=== PATIENT | male | born 1995 | race American Indian/Alaskan Native ===

== ENCOUNTER 2020-11-12 15:58 | Emergency (ER) | payer SELFPAY ==
[2020-11-12 16:12] VITALS: BP 116/61
--- NOTE | 2020-11-12 16:41 | Emergency Department Report ---
Chief Complaint: Upper Respiratory Infection Stated Complaint: CONGESTION/NOSE Time Seen by Provider: 11/12/20 16:36 - HPI History of Present Illness: Patient is a 24-year-old male presents emergency room complaints of nasal congestion and rhinorrhea for 1 year. He was evaluated in April 2020 and was advised to use [id number]-[id number] medication but states he never went to get them. He has not followed up with a primary care doctor or an ENT doctor. He denies any epistaxis, fever, vomiting, diarrhea, chest pain, shortness of breath. Past medical history. No allergies to medications. Vitals are normal On exam: Non toxic appearing, no acute distress atraumatic, normocephalic normal appearance of the eyes, EOMI, no periorbital edema or ecchymosis moist mucus membranes, nasal polyps present to the bilateral naris, no purulent drainage, no sinus tenderness palpation bilaterally No respiratory distress, no accessory muscle use A&O x4, no focal neuro deficit skin is warm, dry, intact Patient is presenting for nasal congestion for 1 year on exam he has nasal polyps Discussed findings with patient discussed the importance of ENT follow-up Discussed supportive care and [id number] treatment with patient Discussed return precautions Medical screening examination performed there is no threat to life or limb at this time - Exam Vital Signs: Vital Signs 11/12/20 16:11 Temperature 98.6 F Pulse Rate 67 Respiratory 20 Rate Blood Pressure 116/61 O2 Sat by Pulse 99 Oximetry MSE screening note: Focused history and physical exam performed. Due to findings the following was ordered: ED Disposition for MSE Clinical Impression: Nasal congestion, Nasal polyps Disposition: MED SCREENING EXAM-LEFT Condition: Stable Instructions: Nasal Polyps Additional Instructions: May use Flonase nasal spray and Claritin [id number]. Please follow-up with the ear nose and throat doctor. It is very important that you follow-up. It appears you have nasal polyps in your nasal cavity. Return to emergency room for any new or worsening symptoms. Referrals: PRIMARY MD MICHAEL [Primary Care Provider] - 2-3 Days CURT ROLLINS MD [Staff Physician] - 2-3 Days ENT [facility] [Provider Group] - [facility] [[facility]] - 2-3 Days Time of Disposition: 16:41 Print Language: PALESTINIAN
== END 2020-11-12 16:50 | disposition left against medical advice (07) ==
LOC: ED 15:58
DX: R09.89 Other specified symptoms and signs involving the circulatory and respiratory systems (principal); Z53.21 Procedure and treatment not carried out due to patient leaving prior to being seen by health care provider